=== PATIENT | female | born 1945 | race Caucasian/White ===

== ENCOUNTER 2019-01-19 08:49 | Outpatient (CLI) | payer OTHER ==
[~2019-01-19 08:49] MED LIST: CIPRO750 MG PO; CLONAZEPAM1 MG PO; DOCUSATE SODIU100 MG PO; METHYLPRED4 MG/DOSE- PO; NEURONTIN PO; PERCOCET 5/3251 TAB PO
== END 2019-01-19 08:53 | disposition home or self-care (01) ==
LOC: SONOGRAMA 08:49
DX: C73 Malignant neoplasm of thyroid gland (principal)